=== PATIENT | male | born 1935 | race Caucasian/White ===

== ENCOUNTER 2018-02-19 12:00 | Day surgery (SDC) | payer OTHER, MEDICARE ==
[2018-02-19] MEDS ORDERED: Ringers Lactate 1,000 ML IV ONE (12:12)
[2018-02-19] MEDS ORDERED: LIDOCAINE 1% MPF 5 ML VIAL ONE (14:08)
[2018-02-19] MEDS ORDERED: PROPOFOL 200 MG/20 ML VIAL IV ONE (14:08)
--- NOTE | 2018-02-19 14:45 | ENDO RPT ---
[address], [address] EGD PROCEDURE REPORT EXAM DATE: 02/19/2018 PATIENT NAME: Souleymane Santiago MR#: [id number] BIRTHDATE: 1935 ATTENDING: Abel [address] Dr STATUS: outpatient BOX FINISHER: Carmen Donahue, Nicole Herndon RN, and Mirella Vences RN INDICATIONS: The patient is a 82 yr old Male here for an EGD due to iron deficiency anemia and heartburn PROCEDURE PERFORMED: EGD with biopsy MEDICATIONS: Per Anesthesia. TOPICAL ANESTHETIC: none CONSENT: The patient understands the risks and benefits of the procedure and understands that these risks include, but are not limited to: sedation, allergic reaction, infection, perforation and/or bleeding. Alternative means of evaluation and treatment include, among others: physical exam, x-rays, and/or surgical intervention. The patient elects to proceed with this endoscopic procedure. DESCRIPTION OF PROCEDURE: During intra-op preparation period all mechanical medical equipment was checked for proper function. Hand hygiene and appropriate measures for infection prevention was taken. Procedure, possible complications, and alternatives including but not limited to the possibility of bleeding, perforation, tear, infection, sepsis, need for surgery, need for blood transfusion, and anesthesia related complications were explained to the patient. After the risks, benefits and alternatives of the procedure were thoroughly explained, Informed consent was verified, confirmed and timeout was successfully executed by the treatment team. The patient was placed in the left lateral position. The patient was anesthetized with topical anesthesia. Through the anesthetized oropharyngeal area, the scope was passed without any difficulty. The Pentax EG-[id number] ([id number]) endoscope was introduced through the mouth and advanced to the third portion of the duodenum. Retroflexed views revealed a small hiatal hernia. The gastroscope was then slowly withdrawn and removed. LA Class B esophagitis was found in the lower esophagus. A small hiatal hernia was found. Gastric biopsies obtained. Small bowel biopsies obtaine with history of iron deficiency anemia. ADVERSE EVENTS: There were no complications. IMPRESSIONS: 1. LA Class B esophagitis in the lower esophagus 2. A small hiatal hernia 3. Gastric biopsies obtained 4. Small bowel biopsies obtaine with history of iron deficiency anemia RECOMMENDATIONS: 1. await biopsy results 2. acid suppression therapy REPEAT EXAM: Abel Harrison Dr eSigned: Abel Harrison Dr 02/19/2018 2:44 PM cc: Annette Smith Alkesh CPT CODES: ICD9 CODES: PATIENT NAME: Souleymane Santiago MR#: [id number]
[2018-02-19 15:13] VITALS: BP 142/67; TEMP 97; O2SAT 98
== END 2018-02-19 15:17 | disposition home or self-care (01) ==
LOC: OR 12:00
PROVIDERS: ATTEND Internal Medicine Gastroenterology
PROC: 0DB88ZX Excision of Small Intestine, Via Natural or Artificial Opening Endoscopic, Diagnostic (ICD-10-PCS; 2018-02-19)
PROC: 0DB68ZX Excision of Stomach, Via Natural or Artificial Opening Endoscopic, Diagnostic (ICD-10-PCS; principal; 2018-02-19 13:30)
DX: K20.8 Other esophagitis (principal); K29.50 Unspecified chronic gastritis without bleeding; K29.80 Duodenitis without bleeding; K44.9 Diaphragmatic hernia without obstruction or gangrene; D50.9 Iron deficiency anemia, unspecified; I10 Essential (primary) hypertension; J44.9 Chronic obstructive pulmonary disease, unspecified; G47.33 Obstructive sleep apnea (adult) (pediatric); I48.91 Unspecified atrial fibrillation; M19.90 Unspecified osteoarthritis, unspecified site; I25.10 Atherosclerotic heart disease of native coronary artery without angina pectoris; Z95.5 Presence of coronary angioplasty implant and graft
CPT/HCPCS: 36415; 81003; 82103; 82105; 82390; 82533; 82550; 82784; 83516; 84443; 85610; 85730; 86021; 86255; 86376; 88305; 88312